=== PATIENT | female | born 1965 | race Caucasian/White ===

== ENCOUNTER 2021-12-17 08:00 | Day surgery (SDC) | payer OTHER, BC ==
[~2021-12-17] VITALS: Ht 170.2 cm; Wt 93.6 kg
[~2021-12-17 08:00] MED LIST: ALBUTEROL2.5 MG/3 M INH; ALIVE WOMEN'S1 EAC2 PO; ASPIRIN325 MG PO; CALCIUM CITRAT1 EA12 PO; CELEBREX200 MG PO; DICLOFENAC SODI75 MG PO; HYDROCODON-ACE1 EA10 PO; LEVOTHYROXINE150 MCG PO; NEURONTIN300 MG PO; OXYCODONE HCL5 MG PO; PROAIR HFA8.5 GM INH; QVAR REDIHALE10.6 G1 INH; SINGULAIR10 MG PO; THISTLE PO; VITAMIN C1000 MG PO
[2021-12-17] MEDS ORDERED: CYCLOBENZAPRINE10 MG PO (08:23)
--- NOTE | 2021-12-17 12:16 | NUR ---
12/17/21 1216 Kavita Akhtar 1207-PATIENT ARRIVED TO PACU ON 6L MASK NONAROUSABLE ORAL AIRWAY IN PLACE. PATIENT COUGHING HOB ELEVATED AND HEAD ADJUSTED ON PILLOW. SR. IVF INFUSING. MELODY TO RIGHT SIDE OF NECK A LITTLE SWELLING AND SOFT DR. REYES AT BEDSIDE. 1209-PATIENT REACTIVE TO VERBAL STIMULI ORAL AIRWAY REMOVED. 96% RR EVEN 6L MASK. 1215-DR. REYES AT BEDSIDE TALKING TO PATIENT. PATIENT OPENING EYES NODS HEAD NO TO PAIN OR NAUSEA. PATIENT SMILED AND WHISTLED ON COMMAND. PATIENT GIVEN SMALL SIP OF WATER RA 94% RR EVEN.
--- NOTE | 2021-12-17 12:49 | NUR ---
PATIENT BACK IN DAY SURGERY ROOM. RATES PAIN 2/10 IN RIGHT NECK AREA. RIGHT NECK INCISION OPEN TO AIR WITH BACITRACIN TO INCISION. MELODY WNL. VS CHECKED. IV SITE WNL. PATIENT DROWSY. REQUESTS TO SLEEP. LIGHTS DIMMED PER REQUEST. CALL LIGHT WITHIN REACH.
[2021-12-17] MEDS ORDERED: HYDROCODON-ACE1 EA10 PO (13:08)
--- NOTE | 2021-12-17 13:14 | NUR ---
PT CALLED RESEARCH DEVELOPMENT DIRECTOR [employer]ORTS SHE VOIDED IN BED. PT UP TO BATHROOM AND BED CHANGED. VOID NOTED IN BED. PT BACK TO BAD AND CALL LIGHT WITHIN REACH. PLAN OF CARE DISCUSSED.
--- NOTE | 2021-12-17 14:06 | NUR ---
1340: VS CHECKED. PATIENT RATES PAIN 4/10. GIVEN APPLESAUCE TO EAT BEFORE TAKING PAIN MEDICATION. 1400: PATIENT MEDICATED FOR PAIN WITH 1 TAB OF NORCO. DISCHARGE INSTRUCTIONS GIVEN TO PATIENT. PATIENT GETTING DRESSED INDEPENDENTLY.
--- NOTE | 2021-12-17 14:23 | NUR ---
1420: PATIENT DRESSED. IV DC'D WNL. TIP INTACT. DRESSING APPLIED. PATIENT DISCHARGED TO HOME VIA WHEELCHAIR WITH .
--- NOTE | 2021-12-17 16:08 | OR ---
[facility] [address], [place] [address] Signed DATE OF OPERATION: 12/17/2021 SURGEON: Tee Reyes MD PREOPERATIVE DIAGNOSIS: Right neck mass. POSTOPERATIVE DIAGNOSIS: Right neck mass. PROCEDURE: Excision of right neck mass. ANESTHESIA: General, LMA; BAIL BONDING AGENT, Aracely PREOPERATIVE HISTORY: Sariah is a 56-year-old lady with a several-month history of a right neck mass. This appears to be in the upper neck, probably tail of parotid somewhat inferior. Dr. Ceasar taylor in [place] performed a fine-needle aspiration showing cells consistent with Warthin tumor and she is being taken to the operating for the above-mentioned procedures. PROCEDURE AND FINDINGS: After informed consent, the patient was taken to the operating room, placed in supine position, where general LMA anesthesia was induced. The patient and procedure were verified. A shoulder roll was placed. Head turned to the left. The mass in question was several fingerbreadths inferior to the angle of the mandible deep to the platysma. The right neck was sterilely prepped and draped. A transverse incision was marked inferior to the mass through a prominent skin crease. A 1% lidocaine with epi was injected. Incision was made through skin, subcutaneous tissue, and sub platysma. The mass in question was found, appeared to be in the tail of the parotid, it was dissected free, staying close to the mass and completely excising it with blunt and sharp dissection. The specimen was removed. It was about 15 mm ovoid mass purplish, sent to Pathology in formalin. Hemostasis was obtained with needle point cautery and clamps and 3-0 silk ties. The wound was copiously lavaged. Hemostasis was verified. The wound was then closed in layers. A 4-0 Vicryl deep platysma and subcutaneous, and marian in the skin. Skin was cleansed. Neosporin was applied. The patient was then awakened, extubated, transported to the recovery room in good condition. No complications. Electronically Signed By: TEE REYES MD 12/17/21 1608 PATIENT NAME: SARIAH DUBOIS OPERATIVE REPORT DATE OF : 67 REPORT #: [id number] PHYSICIAN: TEE REYES MD PCP: SPENSER PRASAD PA-C REPORT IS CONFIDENTIAL AND NOT TO BE RELEASED WITHOUT AUTHORIZATION [address] [place] [address] Signed BLOOD LOSS: Minimal. SPECIMENS: To Pathology. DRAINS: No drains. Tee Reyes MD GC/BELKYS /[id number] Copies: ~ Electronically Signed By: TEE REYES MD 12/17/21 1608 PATIENT NAME: SARIAH DUBOIS OPERATIVE REPORT DATE OF : 67 REPORT #: [id number] PHYSICIAN: TEE REYES MD PCP: SPENSER PRASAD PA-C REPORT IS CONFIDENTIAL AND NOT TO BE RELEASED WITHOUT AUTHORIZATION
--- NOTE | 2021-12-18 17:56 | PATH ---
[facility] [address] [place], [place] [address] Signed SPECIMEN(S): A RIGHT NECK MASS SPECIMEN SOURCE: A. RIGHT NECK MASS CLINICAL HISTORY: Right neck mass excision. 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 - Background salivary gland tissue present. - One lymph node with no evidence of malignancy. NAL:cml:C2NR MICROSCOPIC EXAMINATION: Histologic sections of all submitted blocks are examined by light microscopy. These findings, together with the gross examination, support the pathologic diagnosis. GROSS DESCRIPTION: The specimen, labeled "TA, right neck mass excision," is received in formalin and consists of one pink-jones, firm, tissue fragment that measures 1.5 x 1.2 x 0.8 cm. Specimen is inked. Sectioning through the specimen reveals pink-jones, homogenous tissue. Toe Puncher sections are submitted in cassette (A1). JS (under the direct supervision of a pathologist) The Gross Description was prepared using a voice recognition system. The report was reviewed for accuracy; however, sound-alike word errors, addition and/or deletions may occur. If there is any question about this report, please contact Client Services. PERFORMING LABORATORY: The technical component was performed by [facility], [address] [place] [id number] (CLIA# [id number]). [facility], [address] [address] (CLIA# [id number]). Diagnostician: Jody Angulo MD Pathologist PATIENT NAME: JOSUE DUBOIS PATHOLOGY DATE OF : 67 REPORT #: [id number] PHYSICIAN: [facility] PCP: SPENSER PRASAD PA-C REPORT IS CONFIDENTIAL AND NOT TO BE RELEASED WITHOUT AUTHORIZATION [facility] [address] [place] [id number] Signed Electronically Signed 12/18/2021 Copies: ~ PATIENT NAME: JOSUE DUBOIS PATHOLOGY DATE OF : 67 REPORT #: [id number] PHYSICIAN: CHARMAINE PATHOLOGY PCP: SPENSER PRASAD PA-C REPORT IS CONFIDENTIAL AND NOT TO BE RELEASED WITHOUT AUTHORIZATION
== END 2021-12-17 14:20 | disposition home or self-care (01) ==
LOC: OPS 08:00 → DS 08:00 → OPS 09:00 → DS 09:00 → OPS 10:30
PROVIDERS: ATTEND Otolaryngology
PROC: 0CBB0ZZ Excision of Right Parotid Duct, Open Approach (ICD-10-PCS; principal; 2021-12-17 10:30)
DX: D11.0 Benign neoplasm of parotid gland (principal); E03.9 Hypothyroidism, unspecified; J45.909 Unspecified asthma, uncomplicated
CPT/HCPCS: J0690; J2001; J2250; J2704; J7121